=== PATIENT | male | born 1955 | race Caucasian/White ===

== ENCOUNTER 2025-03-31 21:43 | Emergency (ER) | payer OTHER ==
[~2025-03-31] VITALS: Ht 170.2 cm; Wt 82.2 kg
[2025-03-31 22:28] LABS: BASOPHILS # (AUTO) 0.1 X10'3 (0-0.2); BASOPHILS % (AUTO) 1.2 % (0-1); EOSINOPHILS # (AUTO) 0.3 X10'3 (0-0.9); EOSINOPHILS % (AUTO) 2.6 % (0-6); HEMOGLOBIN 14.1 g/dl (14.0-17.9); LYMPHOCYTES # (AUTO) 2.8 X10'3 (1.1-4.8); LYMPHOCYTES % (AUTO) 26.1 % (21-51); MEAN CORPUSCULAR HGB CONC 33.6 g/dL (33.0-36.5); MEAN CORPUSCULAR VOLUME 92.2 FL (78-98); MEAN PLATELET VOLUME 8.2 FL (7.4-10.4); MONOCYTES # (AUTO) 1.1 X10'3 (0-0.9); MONOCYTES % (AUTO) 10.8 % (2-12); NEUTROPHILS # (AUTO) 6.3 X10'3 (1.8-7.7); NEUTROPHILS % (AUTO) 59.3 % (42-75); PLATELET COUNT 327 X10'3 (140-440); RED BLOOD COUNT 4.56 X10'6 (4.70-6.10); RED CELL DISTRIBUTION WIDTH 14.3 % (11.5-14.5); WHITE BLOOD COUNT 10.7 X10'3 (4.5-11.0)
[2025-03-31 22:40] LABS: ALANINE AMINOTRANSFERASE 40 U/L (12-78); ALBUMIN 3.6 G/DL (3.4-5.0); ALKALINE PHOSPHATASE 72 IU/L (46-116); ANION GAP 11 (8-16); ASPARTATE AMINO TRANSFERASE 27 U/L (10-37); BILIRUBIN,TOTAL 0.4 MG/DL (0.1-1.0); BLOOD UREA NITROGEN 11 MG/DL (7-18); BUN/CREATININE RATIO 10.3 (10.0-20.0); CALCIUM 8.9 MG/DL (8.5-10.1); CHLORIDE 105 MMOL/L (99-107); CREATININE 1.07 MG/DL (0.60-1.10); GLUCOSE 349 MG/DL (70-104); SODIUM 141 MMOL/L (135-145); TOTAL CARBON DIOXIDE 25.2 MMOL/L (24-32); TOTAL PROTEIN 7.1 G/DL (6.4-8.2); eCRCL 61 ML/MIN; eGFR 69 ML/MIN
[2025-03-31 22:41] LABS: POTASSIUM 3.7 MMOL/L (3.5-5.1)
--- NOTE | 2025-03-31 23:04 | Physician Documentation ---
History of Present Illness ~ Chief Complaint: Mechanical Fall Stated Complaint: PAIN Time Seen by MD: 21:59 HPI Patient is seen today with complaints of chronic low back pain. Patient is very poor historian any states that he just took a taxi from [place]. Patient states he has multiple medical complaints but states his chronic low back pain is what brought him in today. Patient denies any saddle anesthesia or changes in bowel or bladder habits. He has no other concern or complaint at this time. Medication Reconciliation Allergies: Coded Allergies: hydrocodone (Verified Allergy, Unknown, 03/31/25) lisinopril (Verified Allergy, Unknown, 03/31/25) methadone (Verified Allergy, Unknown, 03/31/25) Review of Systems Constitutional: Denies: chills, fever, weakness Eyes: Denies: pain, blurred vision ENT: Denies: ear pain, nose pain, throat pain, mouth pain Respiratory: Denies: cough, shortness of breath Cardiovascular: Denies: chest pain, palpitations Gastrointestinal: Denies: abdominal pain, nausea, vomiting Genitourinary: Denies: burning, dysuria Male Genitalia: Denies: penile discharge, testicular pain Neurological: Denies: headache, dizziness Musculoskeletal: Denies: pain, swelling Integumentary: Denies: rash, lesions Allergic/Immunologic: Denies: hives, itching Hematologic/Lymphatic: Denies: no symptoms reported Psychiatric: Denies: depression, anxiety Physical Exam Vital Signs: Temperature: 97.7, Heart Rate: 110, Respiratory Rate: 16, BP: 150/72, Pulse Oximetry: 96, Weight: 82.150 Oxygen Flow Rate: 0 Physical Exam General: Awake and Alert, no acute distress. HEENT: Conjunctiva pink, Sclera clear, Mucus Membranes moist. Neck: Supple without masses and tenderness. Resp: Unlabored. Lungs clear to auscultation bilaterally. Heart: Regular Rate and rhythm, normal S1 and S2 without murmur, rub or gallop. Musculoskeletal: Patient on exam does have decreased range of motion of the lumbar spine in all planes of motion. Patient is neurovascularly intact distally of the bilateral upper and lower extremities. Motor function intact distally. Extremities: No cyanosis,clubbing or edema. Skin: Warm and Dry. Progress Results/Orders Results/Orders Completed Orders - PORTER HOGAN PAC Cbc/Diff (03/31/25 21:56) CMP (03/31/25 21:56) Vital Signs 03/31/25 21:48 Temp 97.7 Pulse 110 Resp 16 B/P (MAP) 150/72 Pulse Ox 96 O2 Flow Rate 0 Laboratory Tests Test 03/31/25 22:16 White Blood Count 10.7 Red Blood Count 4.56 L Hemoglobin 14.1 Hematocrit 42.0 Mean Corpuscular Volume 92.2 Mean Corpuscular Hemoglobin 31.0 Mean Corpuscular Hemoglobin Concent 33.6 Red Cell Distribution Width 14.3 Platelet Count 327 Mean Platelet Volume 8.2 Neutrophils (%) (Auto) 59.3 Lymphocytes (%) (Auto) 26.1 Monocytes (%) (Auto) 10.8 Eosinophils (%) (Auto) 2.6 Basophils (%) (Auto) 1.2 H Neutrophils # (Auto) 6.3 Lymphocytes # (Auto) 2.8 Monocytes # (Auto) 1.1 H Eosinophils # (Auto) 0.3 Basophils # (Auto) 0.1 CBC Comment Sodium Level 141 Potassium Level 3.7 Chloride Level 105 Carbon Dioxide Level 25.2 Anion Gap 11 Blood Urea Nitrogen 11 Creatinine 1.07 Estimated GFR/1.73 m2 69 BUN/Creatinine Ratio 10.3 Glucose Level 349 H Calcium Level 8.9 Total Bilirubin 0.4 Aspartate Amino Transf (AST/SGOT) 27 Alanine Aminotransferase (ALT/SGPT) 40 Alkaline Phosphatase 72 Total Protein 7.1 Albumin 3.6 Globulin 3.5 Albumin/Globulin Ratio 1.0 L Chemistry Comments Medical Decision Making Findings Patient is seen today with complaints of chronic low back pain. Patient is very poor historian any states that he just took a taxi from [place]. Patient states he has multiple medical complaints but states his chronic low back pain is what brought him in today. Patient denies any saddle anesthesia or changes in bowel or bladder habits. He has no other concern or complaint at this time. Patient did have blood work done today which showed largely unremarkable labs other than elevated blood sugar at 349. Patient states he takes insulin but did not take any today. Patient refused lumbar spine x-ray today. Patient also refused treatment with Tylenol or ibuprofen or prescriptions of anything to his pharmacy. Patient will follow up with primary care as soon as possible for referral to physical therapy and/or orthopedic park services specialist for further eval and treatment and further imaging and evaluation. Patient will return to ED with any worsening, concerning or changing symptoms. Departure Disposition: HOME / SELF CARE / HOMELESS Impression: Primary Impression: Chronic low back pain Qualified Codes: M54.50 - Low back pain, unspecified; G89.29 - Other chronic pain Condition: Stable Discharge Instructions: Fall Prevention in the Home, Adult, [id number] Additional Instructions: Patient did have blood work done today which showed largely unremarkable labs other than elevated blood sugar at 349. Patient states he takes insulin but did not take any today. Patient refused lumbar spine x-ray today. Patient also refused treatment with Tylenol or ibuprofen or prescriptions of anything to his pharmacy. Patient will follow up with primary care as soon as possible for referral to physical therapy and/or orthopedic park services specialist for further eval and treatment and further imaging and evaluation. Patient will return to ED with any worsening, concerning or changing symptoms. Referrals: NO PRIMARY CARE PROVIDER (PCP) Signature Scribe Signature: No scribe Attestation: No scribe PORTER HOGAN PAC Mar 31, 2025 23:04
[2025-03-31 23:16] VITALS: BP 148/70; PULSE 99; RESP 18; TEMP 98.6; O2SAT 97
== END 2025-03-31 23:18 | disposition home or self-care (01) ==
LOC: ER 21:43
DX: G89.29 Other chronic pain (principal); M54.50 Low back pain, unspecified; Z88.5 Allergy status to narcotic agent; Z88.8 Allergy status to other drugs, medicaments and biological substances
CPT/HCPCS: 36415; 80053; 85025; 99283

== ENCOUNTER 2025-04-01 16:29 | Emergency (ER) | payer OTHER ==
[~2025-04-01] VITALS: Ht 170.2 cm; Wt 82.2 kg
[2025-04-01 16:46] VITALS: BP 163/75; PULSE 100; RESP 18; TEMP 98.1; O2SAT 96
--- NOTE | 2025-04-01 16:51 | Physician Documentation ---
History of Present Illness ~ Chief Complaint: Back Pain Stated Complaint: "ALL OF MY INJURIES/PAIN" OK to notify your PCP?: Yes Source: patient Mode of Arrival: POV Exam Limitations: no limitations HPI 69-year-old male presents with chronic back pain. He has been here recently for the same thing. He states that he has some paperwork that he needs the doctor to see. Medication Reconciliation Allergies: Coded Allergies: hydrocodone (Verified Allergy, Unknown, 03/31/25) lisinopril (Verified Allergy, Unknown, 03/31/25) methadone (Verified Allergy, Unknown, 03/31/25) Review of Systems All Other Systems at this time: Reviewed and Negative Physical Exam Physical Exam Vital Signs: RN Vital Signs have been reviewed: Yes, Temperature: 98.1, Heart Rate: 100, Respiratory Rate: 18, BP: 163/75, Pulse Oximetry: 96, Weight: 82.150 Oxygen Flow Rate: 0 Pulse Oximetry Reflects: adequate oxygenation Physical Exam General: Alert, no distress. HEENT: No injection, moist mucous membranes. Neck: Full range of motion. Respiratory: No respiratory distress, equal chest rise and fall. Chest: No accessory muscle use. Cardiovascular: Regular rate and rhythm. Gastrointestinal: Nondistended. Extremities: Normal range of motion, no deformity. Neurologic: Oriented x4. Psychiatric: Normal mood and affect. Skin: Normal color, warm and dry. Progress Results/Orders Results/Orders Medical Decision Making Findings Eloped after receiving medical screening exam. Departure Disposition: LEFT AWOL/ELOPED Impression: Primary Impression: Eloped from emergency department Referrals: NO PRIMARY CARE PROVIDER (PCP) Additional Comment Medical Screen Exam This patient recieved a medical screening examination. After reviewing the individual's medical complaints with presenting symptoms and performing an appropriate physical examination, it was determined that no immediate life- threatening emergency medical condition is present. This individual is also not a women having contractions. Signature Scribe Signature: . Attestation: Scribed for Emergency,Department by Georgiana Borjas NP . 04/17/25 20:54 Parts of this note were created using [employer] voice recognition software program. While efforts were made to correct any mistakes made by this voice recognition software program, nonsensical phrases may remain in this note. In addition, there may be errors and syntax, grammar, content and spelling. GEORGIANA SINGLETON [facility] Apr 01, 2025 16:51
== END 2025-04-01 20:36 | disposition left against medical advice (07) ==
LOC: ER 16:30
DX: G89.29 Other chronic pain (principal); M54.9 Dorsalgia, unspecified; Z88.5 Allergy status to narcotic agent; Z88.8 Allergy status to other drugs, medicaments and biological substances
CPT/HCPCS: 99281; 99282

== ENCOUNTER 2025-04-01 22:08 | Emergency (ER) | payer OTHER | END 2025-04-01 22:26 | disposition left against medical advice (07) | LOC: ER 22:09 | DX: Z00.00 Encounter for general adult medical examination without abnormal findings (principal); Z53.21 Procedure and treatment not carried out due to patient leaving prior to being seen by health care provider; Z88.5 Allergy status to narcotic agent; Z88.8 Allergy status to other drugs, medicaments and biological substances ==

== ENCOUNTER 2025-04-03 10:11 | Emergency (ER) | payer OTHER ==
[~2025-04-03] VITALS: Ht 170.2 cm; Wt 82.9 kg
--- NOTE | 2025-04-03 10:46 | Physician Documentation ---
History of Present Illness ~ Chief Complaint: Back Pain Stated Complaint: BACK PAIN Time Seen by MD: 12:07 HPI This is a 69-year-old male with history of chronic pain and reported spinal cord injury presents by EMS requesting pain management and social media specialist. Per EMS report patient did not call EMS himself a concerned bystander called EMS after patient was found sleeping outside a business. When questioned patient reports he has pain from head to toe and asked when until elaborate were inpatient was worse patient refuses to so reporting I believe out all my discs and my back. Patient does not report any change in back pain symptoms recently. When attempting to ask questions patient begins tirade about [facility] and how [facility] are providing [facility]. Patient is uncooperative with history and physical limiting exam. Medication Reconciliation Allergies: Coded Allergies: hydrocodone (Verified Allergy, Unknown, 03/31/25) lisinopril (Verified Allergy, Unknown, 03/31/25) methadone (Verified Allergy, Unknown, 03/31/25) Past Medical History Past Medical History: Chronic Pain Review of Systems ROS As stated above in the HPI, otherwise all systems are reviewed and negative. Physical Exam Physical Exam Vital Signs: Temperature: 98.9, Source: Oral, Heart Rate: 94, Respiratory Rate: 17, BP: 151/75, Pulse Oximetry: 94, Weight: 82.900 Oxygen Flow Rate: 0 Physical Exam VITALS: Reviewed and as above. GENERAL: Alert and oriented x4, nontoxic appearing, no apparent distress. HEENT: RESPIRATORY: No increased work of breathing, no respiratory distress, speaking in full clear sentences, lung sounds clear in all foster CHEST: CV: Regular rate and rhythm no murmur BACK: GI: Soft, nontender to palpation, no rebound, no guarding, bowel sounds present MUSCULOSKELETAL: SKIN: NEURO: Unsteady gait PSYCH: Progress Results/Orders Results/Orders Orders - SALBADOR DANIELLE Hose Inspector And Patcher (04/03/25 10:46) Completed Orders - SALBADOR DANIELLE Cbc/Diff (04/03/25 11:42) BMP (04/03/25 11:42) Drug Screen, Urine (04/03/25 12:11) Ethanol (04/03/25 11:59) Acetaminophen 325mg Tablet (Tylenol Tabl (04/03/25 13:25) Ua W/Microscopic, Cult If Ind (04/03/25 12:15) Vital Signs 04/03/25 04/03/25 10:25 16:19 Temp 98.9 98.9 Pulse 94 92 Resp 17 18 B/P (MAP) 151/75 177/85 Pulse Ox 94 97 O2 Flow Rate 0 Laboratory Tests Test 04/03/25 11:59 04/03/25 12:15 White Blood Count 15.0 H Red Blood Count 4.54 L Hemoglobin 14.0 Hematocrit 42.1 Mean Corpuscular Volume 92.7 Mean Corpuscular Hemoglobin 30.8 Mean Corpuscular Hemoglobin Concent 33.2 Red Cell Distribution Width 14.1 Platelet Count 334 Mean Platelet Volume 8.6 Neutrophils (%) (Auto) 72.2 Lymphocytes (%) (Auto) 17.1 L Monocytes (%) (Auto) 7.9 Eosinophils (%) (Auto) 1.5 Basophils (%) (Auto) 1.3 H Neutrophils # (Auto) 10.8 H Lymphocytes # (Auto) 2.6 Monocytes # (Auto) 1.2 H Eosinophils # (Auto) 0.2 Basophils # (Auto) 0.2 CBC Comment Sodium Level 138 Potassium Level 4.1 Chloride Level 101 Carbon Dioxide Level 26.3 Anion Gap 11 Blood Urea Nitrogen 13 Creatinine 1.11 H Estimated GFR/1.73 m2 66 BUN/Creatinine Ratio 11.7 Glucose Level 346 H Calcium Level 9.3 Albumin 4.0 Chemistry Comments Ethyl Alcohol Level < 10 Urine Specimen Description Non-specified Urine Color Yellow Urine Clarity Clear Urine pH 6.0 Urine Specific [place] 1.025 Urine Protein Negative Urine Glucose (UA) >=1000 H Urine Ketones Negative Urine Occult Blood Negative Urine Nitrite Negative Urine Bilirubin Negative Urine Urobilinogen 0.2 Urine Leukocyte Esterase Negative Urine RBC 0-2 Urine WBC 0-4 Urine Squamous Epithelial Cells Few Urine Bacteria None seen Urine Culture Indicated Not ind Volume Urine Centrifuged 10 ml Urine Comment Urine Opiates Screen Negative Urine Methadone Screen Negative Urine Fentanyl Screen Negative Urine Barbiturates Screen Negative Urine Phencyclidine Screen Negative Urine Amphetamines Screen Negative Urine Benzodiazepines Screen Negative Urine Cocaine Screen Negative Urine Cannabinoids Screen Negative Drug Screen Comment Medical Decision Making Findings MSE performed in triage and patient returned to ED lobby by nursing staff This is a 69-year-old male with history of chronic pain reported as head-to-toe, all my discs and my back or blown out who presented requesting social media specialist and pain management patient was found to have a somewhat unsteady gait though able to independently ambulate without assistance who appears otherwise well and this is speaking in long tirades rates without evidence of shortness of breath. visitor services specialist consult was obtained and social media specialist talk to the patient, per social media specialist patient has had multiple resources provided to him through the [place] and a fire supervisor working with patient as an intermediary with the [facility], additionally social media specialist provided additional local resource patient. I discussed with the patient the need to follow up with a primary care provider for continuing pain management as he is reported to be off any pain medications for the last four years. Patient was offered Tylenol and Blairs in the emergency department and declined both. As patient is otherwise well-appearing with no focal findings on physical exam patient is appropriate for outpatient follow up. Differential Dx:Considerations: Include: Musculoskeletal pain, Strain, Urolithiasis, Urinary tract infection Differential Diagnosis Homeless, gravely disabled, dementia, malingering, cauda equina, spinal injury Departure Disposition: HOME / SELF CARE / HOMELESS Impression: Primary Impression: Chronic low back pain Qualified Codes: M54.50 - Low back pain, unspecified; G89.29 - Other chronic pain Condition: Improved Discharge Instructions: Chronic Back Pain Additional Instructions: visitor services specialist has provided you multiple resources, you will need to follow up with these resources for continued care. You may present to the [facility] [place] [facility]. Please see the [facility] or another local provider such as the [facility] for continued management of your chronic back pain, I am unable to prescribe methadone for chronic pain from the emergency department. Please follow up with the [facility] or a primary care provider in the next few days. Please return to the emergency department for any new or worsening concerning symptoms. Referrals: NO PRIMARY CARE PROVIDER (PCP) Education Educated: Patient Educated regarding: diagnosis, treatment, prognosis, need for follow up Signature Scribe Signature: No scribe Attestation: The note accurately reflects work and decisions made by me.GABBY Cannon 04/03/25 20:18 SALBADOR DANIELLE Apr 03, 2025 10:46
[2025-04-03 12:19] LABS: BASOPHILS # (AUTO) 0.2 X10'3 (0-0.2); BASOPHILS % (AUTO) 1.3 % (0-1); EOSINOPHILS # (AUTO) 0.2 X10'3 (0-0.9); EOSINOPHILS % (AUTO) 1.5 % (0-6); HEMATOCRIT 42.1 % (42.0-52.0); LYMPHOCYTES # (AUTO) 2.6 X10'3 (1.1-4.8); LYMPHOCYTES % (AUTO) 17.1 % (21-51); MEAN CORPUSCULAR HEMOGLOBIN 30.8 PG (27.0-31.0); MEAN CORPUSCULAR HGB CONC 33.2 g/dL (33.0-36.5); MEAN CORPUSCULAR VOLUME 92.7 FL (78-98); MEAN PLATELET VOLUME 8.6 FL (7.4-10.4); MONOCYTES # (AUTO) 1.2 X10'3 (0-0.9); MONOCYTES % (AUTO) 7.9 % (2-12); NEUTROPHILS # (AUTO) 10.8 X10'3 (1.8-7.7); NEUTROPHILS % (AUTO) 72.2 % (42-75); PLATELET COUNT 334 X10'3 (140-440); RED BLOOD COUNT 4.54 X10'6 (4.70-6.10); RED CELL DISTRIBUTION WIDTH 14.1 % (11.5-14.5)
[2025-04-03 12:33] LABS: ANION GAP 11 (8-16); BLOOD UREA NITROGEN 13 MG/DL (7-18); BUN/CREATININE RATIO 11.7 (10.0-20.0); CALCIUM 9.3 MG/DL (8.5-10.1); CHLORIDE 101 MMOL/L (99-107); CREATININE 1.11 MG/DL (0.60-1.10); GLUCOSE 346 MG/DL (70-104); POTASSIUM 4.1 MMOL/L (3.5-5.1); SODIUM 138 MMOL/L (135-145); TOTAL CARBON DIOXIDE 26.3 MMOL/L (24-32); eCRCL 59 ML/MIN; eGFR 66 ML/MIN
[2025-04-03 12:37] LABS: ETHANOL < 10 MG/DL (<10)
[2025-04-03 12:39] LABS: URINE AMPHETAMINE SCREEN NEGATIVE (Neg); URINE BARBITUATE SCREEN NEGATIVE (Neg); URINE BENZODIAZEPINES SCREEN NEGATIVE (Neg); URINE CANNABINOID SCREEN NEGATIVE (Neg); URINE COCAINE SCREEN NEGATIVE (Neg); URINE METHADONE SCREEN NEGATIVE (Neg); URINE OPIATE SCREEN NEGATIVE (Neg); URINE PHENCYCLIDINE SCREEN NEGATIVE (Neg)
[2025-04-03] MEDS: acetaminophen 325mg tablet PO ONE (13:43)
[2025-04-03 14:25] LABS: BILIRUBIN,URINE NEGATIVE (Neg); CLARITY,URINE CLEAR (Clear); COLOR,URINE YELLOW (Yellow); GLUCOSE, URINE >=1000 mg/dl (Neg); KETONES,URINE NEGATIVE (Neg); LEUKOCYTE ESTERASE ,URINE NEGATIVE (Neg); NITRITES, URINE NEGATIVE (Neg); OCCULT BLOOD,URINE NEGATIVE (Neg); PROTEIN,URINE NEGATIVE (Neg); UROBILINOGEN,URINE 0.2 E.U/dL (0.2-1.0)
[2025-04-03 14:26] LABS: UA COLLECTION TYPE NON-SPECIFIED
[2025-04-03 14:32] LABS: RBC,URINE 0-2 /HPF (0-2)
[2025-04-03 14:33] LABS: BACTERIA,URINE NONE SEEN /HPF (Neg); SQUAMOUS EPITHELIAL CELL,UR FEW /LPF (FEW); WBC,URINE 0-4 /HPF (0-4)
[2025-04-03 16:19] VITALS: BP 177/85; PULSE 92; RESP 18; TEMP 98.9; O2SAT 97
== END 2025-04-03 16:00 | disposition home or self-care (01) ==
LOC: ER 10:12
DX: G89.29 Other chronic pain (principal); M54.50 Low back pain, unspecified; Z88.8 Allergy status to other drugs, medicaments and biological substances; Z88.5 Allergy status to narcotic agent
CPT/HCPCS: 36415; 80048; 80305; 80320; 81001; 85025; 99284